=== PATIENT | female | born 2000 | race Caucasian/White ===

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

== ENCOUNTER 2023-11-20 09:10 | Outpatient (CLI) | payer OTHER, SELFPAY | END 2023-11-20 09:11 | disposition home or self-care (01) | PROVIDERS: Visit Provider Physician Assistant | DX: Z12.4 Encounter for screening for malignant neoplasm of cervix (principal); Z13.220 Encounter for screening for lipoid disorders; Z13.1 Encounter for screening for diabetes mellitus | CPT/HCPCS: 80061; 82947; 87624; 87625; 88141; 88142 ==